=== PATIENT | female | born 1945 | race African-American/Black ===

== ENCOUNTER 2022-07-28 16:33 | Inpatient (IN) | payer MEDICARE ==
[~2022-07-28] VITALS: Ht 162.6 cm; Wt 49.4 kg
--- NOTE | 2022-07-28 17:00 | NUR ---
Pt was triaged and is waiting in the ER hallway in the ambulance [facility]. The ER is saturated and there are no ER beds available.
--- NOTE | 2022-07-28 18:30 | NUR ---
Pt to room 1B via ambulance gurney. BIB private ambulance from [facility] medical surgical floor for admission to MHU. Per report patient has already been medically cleared and needs psych eval for admission to MHU.
--- NOTE | 2022-07-28 19:04 | NUR ---
Endorsed to Nichol ROACH.
--- NOTE | 2022-07-28 19:17 | NUR ---
Called business initiatives manager Jeffy for psych eval. ETA 45 mins
--- NOTE | 2022-07-28 19:36 | NUR ---
patient is able to walk to the restroom with steady gait
--- NOTE | 2022-07-28 19:54 | NUR ---
called MHU for bed. patient assigned to room 141B
[2022-07-28 19:59] LABS: *BILIRUBIN,URIN NEGATIVE (NEGATIVE); *BLOOD, URINE NEGATIVE (NEGATIVE); *CLARITY,URINE CLEAR (CLEAR); *COLOR,URINE YELLOW (YELLOW); *KETONES,URINE NEGATIVE (NEGATIVE); *UROBILINOGEN,URINE 0.2 E.U./dl (NORMAL); LEUKOCYTE ESTERASE ,URINE 1+ (NEGATIVE); NITRITE, URINE NEGATIVE (NEGATIVE); UGLUCOSE NEGATIVE (NEGATIVE)
[2022-07-28 20:01] LABS: BACTERIA,URINE NONE SEEN /HPF (NONE SEEN); RBC,URINE 0-3 /HPF (0-3); SQUAMOUS EPITHELIAL CELL,UR FEW /HPF (NONE SEEN)
[2022-07-28 20:08] LABS: *AMPHETAMINE, URINE NEGATIVE (NEGATIVE); *CANNABINOID, URINE NEGATIVE (NEGATIVE); *COCCAINE, URINE NEGATIVE (NEGATIVE); *OPIATE, URINE NEGATIVE (NEGATIVE); *PHENCYCLIDINE SCREEN,URINE NEGATIVE (NEGATIVE)
--- NOTE | 2022-07-28 20:16 | NUR ---
barrel rifler Jeffy at bedside, psych eval in progress
--- NOTE | 2022-07-28 20:48 | NUR ---
Patient is placed on hold by wedding transportation driver Jeffy 07/28/22 @2030
[2022-07-28 20:50] LABS: HEMATOCRIT 28.3 % (31.2-41.9); MEAN CORPUSCULAR HEMOGLOBIN 30.4 uug (24.7-32.8); MEAN CORPUSCULAR VOLUME 91.2 fL (75.5-95.3); PLATELET COUNT (AUTO) 253 K/uL (179-408)
[2022-07-28 21:08] LABS: CARBON DIOXIDE 28 mmol/L (21-32); CHLORIDE 105 mmol/L (98-107); CREATININE 1.1 mg/dL (0.6-1.3); GLUCOSE 115 mg/dL (74-106); POTASSIUM 4.8 mmol/L (3.5-5.1); UREA NITROGEN, BLOOD 19 mg/dL (7-18)
[2022-07-28 21:13] LABS: ALANINE AMINOTRANSFERASE 73 U/L (14-59); ALKALINE PHOSPHATASE 65 U/L (50-136); ASPARTATE AMINOTRANSFERASE 83 U/L (15-37); BILIRUBIN,DIRECT 0.1 mg/dL (0.0-0.2); BILIRUBIN,TOTAL 0.2 mg/dL (0.2-1.0); TOTAL PROTEIN, SERUM 7.1 g/dL (6.4-8.2)
--- NOTE | 2022-07-28 21:13 | NUR ---
called U to give report, spoke with Gilda ROACH. Was told to call back in 10-15mins
[2022-07-28 21:17] LABS: ACETAMINOPHEN < 2.0 ug/mL (10-30)
[2022-07-28 21:33] LABS: ETHANOL < 3 MG/DL (0-0)
--- NOTE | 2022-07-28 21:36 | NUR ---
called MHU to give report. No answer. will call again in 10 mins
--- NOTE | 2022-07-28 21:54 | NUR ---
Per warehouse manager Gabi ROACH, take the patient in MHU and give report later once RN is ready for report
--- NOTE | 2022-07-28 22:06 | NUR ---
report given to Gilda RN - MHU
--- NOTE | 2022-07-28 22:06 | NUR ---
Patient transfered to MHU by Mason ROACH
--- NOTE | 2022-07-28 22:07 | NUR ---
Pt. admitted to MHU room 141B , under care of Dr. Quintanilla/Gilbert Gong List completed Gilda RN aware of patient's arrival
[2022-07-28 22:17] VITALS: BP 159/58
[2022-07-28] MEDS ORDERED: NITROFURANTOIN/NITROFURAN MAC 100 MG CAPSULE PO ONE (22:30)
[2022-07-28] MEDS ORDERED: CLONAZEPAM 0.5 MG TABLET PO PRN (23:00)
[2022-07-28] MEDS ORDERED: TEMAZEPAM 7.5 MG CAPSULE PO PRN (23:00)
[2022-07-28] MEDS ORDERED: ACETAMINOPHEN 325 MG TABLET PO PRN (23:00)
[2022-07-28] MEDS ORDERED: MAGNESIUM HYDROXIDE 30 ML LIQUID UDC PO PRN (23:00)
[2022-07-28] MEDS ORDERED: MAG HYDROX/AL HYDROX/SIMETH 30 ML LIQUID UDC PO PRN (23:00)
--- NOTE | 2022-07-28 23:45 | NUR ---
ADMISSION NOTE : Patient is a 77 year old female ,brought to the ED by ambulance from [facility] on a 5150 for GD. Per the hold, the patient has been increasingly confused and paranoid. The patient thinks her is " Poisoning her food ". Upon face to face evaluation , the patient is confused and has poor insight as to where she is and why she is here. The patient is delusional and stated that " My uses drugs and he is trying to kill me because I want to divorce him so I can my Doctor ". This telegraphic typewriter repairer was not able to get a clear medical history from the patient because she is forgetful and a poor historian. When being interviewed, the patient was oriented to the environment, took a shower and was provided a Patients Rights Handbook , along with the Patients Advisement . The patient was willing to take an antibiotic for a UTI, but verbalized resistance to taking other types medications. Safety Stratiges are in place at this time.
[2022-07-28] MEDS ORDERED: LOSA100T3 PO (23:50)
[2022-07-28] MEDS ORDERED: MIRT-121 PO (23:50)
[2022-07-28] MEDS ORDERED: DOCU100C36 PO (23:50)
[2022-07-28] MEDS ORDERED: ATOR10TA PO (23:50)
[2022-07-28] MEDS ORDERED: MEMA10TA PO (23:50)
[2022-07-28] MEDS ORDERED: OLAN15TA3 PO (23:50)
[2022-07-28] MEDS ORDERED: ASPI81TA31 PO (23:50)
[2022-07-28] MEDS ORDERED: MECL-159 PO (23:50)
[2022-07-28] MEDS ORDERED: CLON0.1T PO (23:50)
[2022-07-28] MEDS ORDERED: AMLO-212 PO (23:50)
[2022-07-28] MEDS ORDERED: FERR325T28 PO (23:50)
[2022-07-29 07:30] VITALS: BP 134/45
[2022-07-29] MEDS ORDERED: CLONIDINE HCL 0.1 MG TABLET PO PRN (12:15)
[2022-07-29] MEDS ORDERED: MECLIZINE HCL 25 MG TABLET PO PRN (12:15)
[2022-07-29] MEDS ORDERED: LOSA50TA39 PO (12:33)
[2022-07-29 16:00] VITALS: BP 121/45
[2022-07-29] MEDS: MEMANTINE HCL 5 MG TABLET PO SCH (18:09)
[2022-07-29] MEDS: DOCUSATE SODIUM 100 MG CAPSULE PO SCH (18:09)
[2022-07-29 19:52] VITALS: BP 120/59
[2022-07-29] MEDS: OLANZAPINE 2.5 MG TABLET PO SCH (20:54)
[2022-07-29] MEDS: NITROFURANTOIN/NITROFURAN MAC 100 MG CAPSULE PO SCH (20:54)
[2022-07-29] MEDS: ATORVASTATIN 10 MG TABLET PO SCH (20:54)
[2022-07-30 07:30] VITALS: BP 156/57
[2022-07-30] MEDS: MEMANTINE HCL 5 MG TABLET PO SCH ×2 (08:52→16:51)
[2022-07-30] MEDS: NITROFURANTOIN/NITROFURAN MAC 100 MG CAPSULE PO SCH ×2 (08:52→20:54)
[2022-07-30] MEDS: ASPIRIN 81 MG TAB.CHEW PO SCH (08:52)
[2022-07-30] MEDS: DOCUSATE SODIUM 100 MG CAPSULE PO SCH ×2 (08:52→16:51)
[2022-07-30] MEDS: FERROUS SULFATE 325 MG TABEC PO SCH (08:53)
[2022-07-30] MEDS: ENSURE WITH FIBER 237 ML LIQUID (CHOCOLATE) PO SCH ×2 (08:55→16:51)
[2022-07-30] MEDS: AMLODIPINE 5 MG TABLET PO SCH (08:57)
[2022-07-30] MEDS: LOSARTAN POTASSIUM 50 MG TABLET PO SCH (08:57)
[2022-07-30] MEDS ORDERED: LOSARTAN POTASSIUM 50 MG TABLET PO SCH (09:00)
--- NOTE | 2022-07-30 14:28 | NUR ---
LORENZO Initial Discharge Note: Pt currently resides at home under the care of her at [facility] [address] [place] [address] ([phone]). Per pt's , Vinny, pt will discharge back home by his transportation upon discharge. LORENZO will continue to work with pt, family and MD to ensure a safe and proper discharge plan for the pt.
[2022-07-30 16:00] VITALS: BP 133/34
[2022-07-30 20:15] VITALS: BP 118/51
[2022-07-30] MEDS: ATORVASTATIN 10 MG TABLET PO SCH (20:54)
[2022-07-30] MEDS: OLANZAPINE 2.5 MG TABLET PO SCH (20:54)
[2022-07-31 07:30] VITALS: BP 116/46
[2022-07-31] MEDS: LOSARTAN POTASSIUM 50 MG TABLET PO SCH (08:55)
[2022-07-31] MEDS: DOCUSATE SODIUM 100 MG CAPSULE PO SCH ×2 (08:55→16:35)
[2022-07-31] MEDS: MEMANTINE HCL 5 MG TABLET PO SCH ×2 (08:55→16:34)
[2022-07-31] MEDS: AMLODIPINE 5 MG TABLET PO SCH (08:56)
[2022-07-31] MEDS: NITROFURANTOIN/NITROFURAN MAC 100 MG CAPSULE PO SCH ×2 (08:56→21:15)
[2022-07-31] MEDS: FERROUS SULFATE 325 MG TABEC PO SCH (08:56)
[2022-07-31] MEDS: ASPIRIN 81 MG TAB.CHEW PO SCH (08:58)
[2022-07-31] MEDS: ENSURE WITH FIBER 237 ML LIQUID (CHOCOLATE) PO SCH ×2 (08:58→16:35)
--- NOTE | 2022-07-31 10:43 | NUR ---
Firearms Report: Corporate Lawyer completed and submitted a DOJ firearms report for 5150 grave disability certifications. A copy of report has been placed in patient chart.
[2022-07-31 16:00] VITALS: BP 115/53
[2022-07-31] MEDS: OLANZAPINE 2.5 MG TABLET PO SCH (16:34)
--- NOTE | 2022-07-31 17:19 | NUR ---
Received patient is alert and oriented x3,isolative withdrawn lying in bed all shift, compliant with all medication will continue close monitoring.
[2022-07-31] MEDS: ATORVASTATIN 10 MG TABLET PO SCH (21:15)
[2022-07-31 22:33] VITALS: BP 106/45
[2022-08-01 07:39] VITALS: BP 107/53
[2022-08-01] MEDS: LOSARTAN POTASSIUM 50 MG TABLET PO SCH (09:00)
[2022-08-01] MEDS: MEMANTINE HCL 5 MG TABLET PO SCH ×2 (09:00→16:58)
[2022-08-01] MEDS: FERROUS SULFATE 325 MG TABEC PO SCH (09:00)
[2022-08-01] MEDS: DOCUSATE SODIUM 100 MG CAPSULE PO SCH ×2 (09:00→16:58)
[2022-08-01] MEDS: AMLODIPINE 5 MG TABLET PO SCH (09:00)
[2022-08-01] MEDS: NITROFURANTOIN/NITROFURAN MAC 100 MG CAPSULE PO SCH ×2 (09:00→21:41)
[2022-08-01] MEDS: OLANZAPINE 2.5 MG TABLET PO SCH ×2 (09:00→16:58)
[2022-08-01] MEDS: ASPIRIN 81 MG TAB.CHEW PO SCH (09:00)
[2022-08-01] MEDS: ENSURE WITH FIBER 237 ML LIQUID (CHOCOLATE) PO SCH ×2 (09:01→16:58)
--- NOTE | 2022-08-01 15:49 | NUR ---
Patient is received sleeping in her room. Patient is A/O X 2 to person, place. Patient is cooperative with nursing care, compliant with medications, withdrawn, isolative, depressed, quiet. Patient requires minimal assistance with ADL. Patient is encourage to vent feelings and emotions. Fall and safety precautions implemented.
[2022-08-01 16:25] VITALS: BP 114/54
[2022-08-01 21:10] VITALS: BP 92/32
[2022-08-01] MEDS: ATORVASTATIN 10 MG TABLET PO SCH (21:41)
--- NOTE | 2022-08-02 07:22 | NUR ---
Shift Note: RECEIVED PATIENT IN ROOM ASLEEP NO SIGNS OF DISTRESS NOTED. PT WAS AWAKENED FOR MEDICATION NO SIGNS OF ADVERSE REACTION NOTED. PT SLEPT 9 HOURS FOR THE WHOLE SHIFT PT WEIGHT IS 108 PT GAINED 2 POUNDS.PT WAS CALM AND COOPERATIVE. PT MONITORED ORDERED WILL CONTINUE TO MONITOR FOR FALLS AND SAFETY ANY OTHER NEEDS PATIENT MAY HAVE.
[2022-08-02 07:53] VITALS: BP 104/46
[2022-08-02] MEDS: NITROFURANTOIN/NITROFURAN MAC 100 MG CAPSULE PO SCH ×2 (08:47→22:01)
[2022-08-02] MEDS: FERROUS SULFATE 325 MG TABEC PO SCH (08:47)
[2022-08-02] MEDS: DOCUSATE SODIUM 100 MG CAPSULE PO SCH ×2 (08:47→16:32)
[2022-08-02] MEDS: ASPIRIN 81 MG TAB.CHEW PO SCH (08:47)
[2022-08-02] MEDS: OLANZAPINE 2.5 MG TABLET PO SCH ×2 (08:47→16:33)
[2022-08-02] MEDS: MEMANTINE HCL 5 MG TABLET PO SCH ×2 (08:47→16:32)
[2022-08-02] MEDS: AMLODIPINE 5 MG TABLET PO SCH (08:48)
[2022-08-02] MEDS: ENSURE WITH FIBER 237 ML LIQUID (CHOCOLATE) PO SCH ×2 (08:52→17:44)
[2022-08-02] MEDS: LOSARTAN POTASSIUM 50 MG TABLET PO SCH (08:52)
--- NOTE | 2022-08-02 10:00 | NUR ---
Received report from bryan Ny RN. Received pt in bed resting, no signs for distress noted. Pt A&Ox1 to person. Pt's BP is 104/46, Lipitor and amlodipine held. Pt was calm and cooperative, took the rest of AM meds. Pt monitored as ordered, will continue to monitor for falls and safety.
[2022-08-02] MEDS: NUTRISOURCE FIBER 4 GM PACKET PO SCH (13:45)
[2022-08-02 16:21] VITALS: BP 126/44
--- NOTE | 2022-08-02 19:31 | NUR ---
Endorsed pt to night nurseYanely. Pt in bed sleeping, arousable upon entry, no s/s of distress noted.
[2022-08-02 20:00] VITALS: BP 104/58
[2022-08-02 21:14] VITALS: BP 127/50
[2022-08-02] MEDS: ATORVASTATIN 10 MG TABLET PO SCH (22:02)
--- NOTE | 2022-08-03 02:53 | NUR ---
SHIFT NOTE': RECEIVED REPORT FROM AM NURSE PATIENT IS STILL ISOLATIVE AND DEPRESSIVE ON A 14 DAY HOLD UNTIL0-08/13/21. PT REASSESSED PT IS SLEEPING STAYS IN ROOM PT AWAKENED TO GIVE MEDICATION SHE CRACKED A JOKE AND WE BOTH SMILED. NO SIGNS OF RESPIRATORY DISTRESS NOTED. PT HAD NO ADVERSE SIDE EFFECTS FROM HS MEDICATION WILL CONTINUE TO MONITOR ORDERED FOR SAFETY AND FALLS ALONG WITH ENDORSING TO AM NURSE.
[2022-08-03 07:53] VITALS: BP 123/46
[2022-08-03] MEDS: NITROFURANTOIN/NITROFURAN MAC 100 MG CAPSULE PO SCH (08:50)
[2022-08-03] MEDS: MEMANTINE HCL 5 MG TABLET PO SCH ×2 (08:50→16:13)
[2022-08-03] MEDS: AMLODIPINE 5 MG TABLET PO SCH (08:50)
[2022-08-03] MEDS: FERROUS SULFATE 325 MG TABEC PO SCH (08:50)
[2022-08-03] MEDS: LOSARTAN POTASSIUM 50 MG TABLET PO SCH (08:50)
[2022-08-03] MEDS: OLANZAPINE 2.5 MG TABLET PO SCH ×2 (08:50→21:09)
[2022-08-03] MEDS: DOCUSATE SODIUM 100 MG CAPSULE PO SCH ×2 (08:50→16:13)
[2022-08-03] MEDS: ASPIRIN 81 MG TAB.CHEW PO SCH (08:50)
[2022-08-03] MEDS: ENSURE WITH FIBER 237 ML LIQUID (CHOCOLATE) PO SCH ×2 (09:21→16:13)
[2022-08-03] MEDS: NUTRISOURCE FIBER 4 GM PACKET PO SCH (09:21)
--- NOTE | 2022-08-03 14:42 | NUR ---
GPS: Nursing Notes: Thought Disorder: Patient is awake and responding to her name, resistant with nursing care, isolative and withdrawn in her room, refusing to come out her room, paranoid behavior, believes that her is trying to poison her her, stated "Yes, he is trying to drug me... I am going to my doctor... I will divorce my ..", encourage to come out of her room to see the Rema Seymour at the activity room, but refused to come out of her room, unable to formulate a viable plan for self care, unkempt appearance, continue to monitor for safety, continue with treatment plan.
[2022-08-03 15:52] VITALS: BP 123/54
[2022-08-03 21:06] VITALS: BP 118/38
[2022-08-03] MEDS: ATORVASTATIN 10 MG TABLET PO SCH (21:09)
[2022-08-04 08:10] VITALS: BP 87/48
[2022-08-04] MEDS: DOCUSATE SODIUM 100 MG CAPSULE PO SCH ×2 (08:45→18:15)
[2022-08-04] MEDS: ASPIRIN 81 MG TAB.CHEW PO SCH (08:45)
[2022-08-04] MEDS: FERROUS SULFATE 325 MG TABEC PO SCH (08:45)
[2022-08-04] MEDS: MEMANTINE HCL 5 MG TABLET PO SCH ×2 (08:45→18:15)
[2022-08-04] MEDS: ENSURE WITH FIBER 237 ML LIQUID (CHOCOLATE) PO SCH ×2 (08:46→18:15)
[2022-08-04] MEDS: NUTRISOURCE FIBER 4 GM PACKET PO SCH (08:46)
[2022-08-04] MEDS: AMLODIPINE 5 MG TABLET PO SCH (09:00)
[2022-08-04] MEDS: LOSARTAN POTASSIUM 50 MG TABLET PO SCH (09:00)
[2022-08-04 09:30] VITALS: BP 110/54
--- NOTE | 2022-08-04 13:55 | NUR ---
GPS: Nursing Notes: Thought Disorder: Patient is awake and responding to her name, compliant with her medications, refusing to come out of her room to participate in therapeutic groups, recreational therapist doing a 1:1 therapy with her, believes that her is trying to poison her, stated "I am going to my doctor and divorce him..", redirected during shift, poor insight, impaired judgment, unable to formulate a viable plan for self care, continue to monitor for safety, continue with treatment plan.
--- NOTE | 2022-08-04 15:18 | NUR ---
LORENZO PC Hearing: Patient had 5250 probable cause hearing today and it was upheld for grave disability.
[2022-08-04 15:30] VITALS: BP 136/50
--- NOTE | 2022-08-04 15:48 | NUR ---
LORENZO Family Contact: LORENZO contacted pt's , Vinny ([phone]) and discussed pt's discharge plan to return home. Vinny stated if pt discharges between this 08/06 to next wednesday, Frandy sister, adrianne ([phone]) will provide transportation to patients return home. Vinny state he will be at a conference. However, Vinny will still be available to be informed of pt's discharge update.
[2022-08-04 20:04] VITALS: BP 146/54
[2022-08-04] MEDS: OLANZAPINE 2.5 MG TABLET PO SCH (21:00)
[2022-08-04] MEDS: ATORVASTATIN 10 MG TABLET PO SCH (21:00)
[2022-08-05 07:30] VITALS: BP 107/57
--- NOTE | 2022-08-05 07:36 | NUR ---
GPS: SHIFT NOTE: PT COMPLIANT WITH MEDICATION AND NO INTERACTION WITH PEERS PT IS ISOLATIVE IN HER ROOM.PT HAS A SISTER NAME JOHN WHO WILL COME AND SEE PT TO GET KEYS. PT IS COMPLIANT WITH MEDICATION AND NO ADVERSE REACTION FROM MEDICATION. WILL CONTINUE TO MONITOR FOR SAFETY. AND FALLS
[2022-08-05] MEDS: LOSARTAN POTASSIUM 50 MG TABLET PO SCH (09:00)
[2022-08-05] MEDS: AMLODIPINE 5 MG TABLET PO SCH (09:00)
[2022-08-05] MEDS: MEMANTINE HCL 5 MG TABLET PO SCH ×2 (09:27→17:55)
[2022-08-05] MEDS: DOCUSATE SODIUM 100 MG CAPSULE PO SCH ×2 (09:27→17:55)
[2022-08-05] MEDS: FERROUS SULFATE 325 MG TABEC PO SCH (09:27)
[2022-08-05] MEDS: ASPIRIN 81 MG TAB.CHEW PO SCH (09:27)
[2022-08-05] MEDS: ENSURE WITH FIBER 237 ML LIQUID (CHOCOLATE) PO SCH ×2 (09:28→17:55)
[2022-08-05] MEDS: NUTRISOURCE FIBER 4 GM PACKET PO SCH (09:28)
--- NOTE | 2022-08-05 15:03 | NUR ---
PT IS LESS ISOLATIVE INTERACTS WITH ROOMMATE AND THERAPISTS WAS PLAYED GAMES IN THE DINING AREA AND HAD A VISIT FROM FAMILY MEMBER. AND PT IS TALKING TO STAFFF BUT HAIR IS STILL DISHEVELED. WILL ENDORSE TO HS NURSE.
[2022-08-05 16:00] VITALS: BP 121/45
[2022-08-05 20:15] VITALS: BP 116/51
--- NOTE | 2022-08-05 20:30 | NUR ---
RECEIVED PATIENT IN HER ROOM IN BED. SHE IS NOTED AWAKE A/O X 2 TO 3. HER MOOD IS LOW AFFECT IS FLAT. SHE IS ABLE TO VERBALIZED HER FEELINGS. SHE IS ABLE TO HAVE A CONVERSATION WITH THIS PROGRAM MANUFACTURING LEADER AND IS MEANINGFUL. SHE STATE, "YES, MY CAME TO VISIT ME TODAY. WE ARE FINE". PATIENT IS SOMEWHAT BETTER. SHE IS REASSURED FOR HER SAFETY. SAFETY AND FALL PRECAUTIONS ARE IN PLACE. HER V/S ARE STABLE. SHE WAS GIVEN PO FLUIDS AND SNACKS. ALL HER NEEDS ARE MET. WILL CONTINUE TO MONITOR.
[2022-08-05] MEDS: OLANZAPINE 2.5 MG TABLET PO SCH (21:15)
[2022-08-05] MEDS: ATORVASTATIN 10 MG TABLET PO SCH (21:16)
[2022-08-06 07:30] VITALS: BP 110/51
[2022-08-06] MEDS: ENSURE WITH FIBER 237 ML LIQUID (CHOCOLATE) PO SCH ×2 (09:07→17:14)
[2022-08-06] MEDS: AMLODIPINE 5 MG TABLET PO SCH (09:41)
[2022-08-06] MEDS: ASPIRIN 81 MG TAB.CHEW PO SCH (09:41)
[2022-08-06] MEDS: DOCUSATE SODIUM 100 MG CAPSULE PO SCH ×2 (09:41→16:58)
[2022-08-06] MEDS: MEMANTINE HCL 5 MG TABLET PO SCH ×2 (09:42→16:58)
[2022-08-06] MEDS: LOSARTAN POTASSIUM 50 MG TABLET PO SCH (09:42)
[2022-08-06] MEDS: FERROUS SULFATE 325 MG TABEC PO SCH (09:42)
[2022-08-06] MEDS: NUTRISOURCE FIBER 4 GM PACKET PO SCH (09:46)
--- NOTE | 2022-08-06 12:32 | NUR ---
LORENZO Family Contact: LORENZO spoke with pt's daughter, Denise ([phone]) in person during visitation. Denise asked to be informed in addition to her father and aunt for pt's discharge date. Denise stated pt will follow-up at home with additional care providers to help her father take care of the pt.
[2022-08-06 16:00] VITALS: BP 125/49
--- NOTE | 2022-08-06 18:45 | NUR ---
0730-REC'D PATIENT IN BED, AWAKE, ALERT, ABLE TO COMMUNICATE HER NEEDS, FOLLOWS SIMPLE DIRECTIONS. DENIES ANY PAIN AT THIS TIME. ORAL FLUIDS TAKEN WELL. PATIENT AMBULATES AD ABDULLAHI IN HALLWAY UNIT, GOES BACK TO HER ROOM TO REST/SLEEP ON AND OFF. SELF CARE, CONTINENT AND W/ BRP, SUPERVISION PROVIDED AT ALL TIMES. ASSIST NEEDED. ENCOURAGED AND OFFERED ASSIST FREQUENTLY. WILL MONITOR CLOSELY. 0900-SCHEDULED/DUE MEDICATION ADMINISTERED WITH NO ASE NOTED, ORAL FLUIDS TAKEN WELL. PATIENT ATE HER BREAKFAST, DENIES GI DISCOMFORT. 1500-PATIENT OOB, PARTICIPATING IN PLANNED ACTIVITIES WITH OTHER PATIENTS IN THE UNIT, SOCIALIZES WITH NURSING STAFF, WHEREABOUTS MONITOR FOR SAFETY. ASSIST NEEDED DURING SHIFT. PATIENT COOPERATIVE WITH HER CARE AND TREATMENT. NEEDS ANTICIPATED AND MET, NO UNUSUAL EVENTS DURING SHIFT. ENDORSED TO INCOMING NOC RELIEVING NURSE.
[2022-08-06 20:20] VITALS: BP 100/51
[2022-08-06] MEDS: ATORVASTATIN 10 MG TABLET PO SCH (21:18)
[2022-08-06] MEDS: OLANZAPINE 2.5 MG TABLET PO SCH (21:23)
--- NOTE | 2022-08-07 06:44 | NUR ---
GPS: SHIFT nOTE: RECEIVED PT IN ROOM SITTING UP IN BED READING A BOOK. PT ABLE TO EXPRESS HER NEEDS INDEPENDENT WITH CARE BUT ASSIST PRN. PT DENIES PAIN AND MEDICATION GIVEN ORDERED WITH NO ADVERSE REACTION. PT IS LESS ISOLATIVE SOMETIMES INTERMINGLE WITH PEERS ALONG WITH STAFF. PT IS MONITORED CLOSELY.
[2022-08-07 07:30] VITALS: BP 91/48
[2022-08-07] MEDS: DOCUSATE SODIUM 100 MG CAPSULE PO SCH ×2 (08:59→17:26)
[2022-08-07] MEDS: ASPIRIN 81 MG TAB.CHEW PO SCH (08:59)
[2022-08-07] MEDS: LOSARTAN POTASSIUM 50 MG TABLET PO SCH (09:00)
[2022-08-07] MEDS: AMLODIPINE 5 MG TABLET PO SCH (09:00)
[2022-08-07] MEDS: FERROUS SULFATE 325 MG TABEC PO SCH (09:01)
[2022-08-07] MEDS: ENSURE WITH FIBER 237 ML LIQUID (CHOCOLATE) PO SCH ×2 (09:01→17:27)
[2022-08-07] MEDS: MEMANTINE HCL 5 MG TABLET PO SCH ×2 (09:02→17:26)
[2022-08-07] MEDS: NUTRISOURCE FIBER 4 GM PACKET PO SCH (09:03)
--- NOTE | 2022-08-07 14:32 | NUR ---
Received patient sleeping in her room. Patient is isolative, depressed, withdrawn, forgetful, confused at times, cooperative with nursing care, and compliant with medications. Emotional support provided. Fall and safety precautions implemented.
[2022-08-07 16:56] VITALS: BP 124/46
[2022-08-07 20:45] VITALS: BP 105/45
[2022-08-07] MEDS: ATORVASTATIN 10 MG TABLET PO SCH (21:15)
[2022-08-07] MEDS: OLANZAPINE 2.5 MG TABLET PO SCH (21:15)
[2022-08-08 08:05] VITALS: BP 117/52
[2022-08-08] MEDS: ASPIRIN 81 MG TAB.CHEW PO SCH (08:25)
[2022-08-08] MEDS: DOCUSATE SODIUM 100 MG CAPSULE PO SCH ×2 (08:26→17:21)
[2022-08-08] MEDS: FERROUS SULFATE 325 MG TABEC PO SCH (08:26)
[2022-08-08] MEDS: LOSARTAN POTASSIUM 50 MG TABLET PO SCH (08:26)
[2022-08-08] MEDS: MEMANTINE HCL 5 MG TABLET PO SCH ×2 (08:26→17:21)
[2022-08-08] MEDS: AMLODIPINE 5 MG TABLET PO SCH (08:27)
[2022-08-08] MEDS: ENSURE WITH FIBER 237 ML LIQUID (CHOCOLATE) PO SCH ×2 (08:27→17:22)
[2022-08-08] MEDS: NUTRISOURCE FIBER 4 GM PACKET PO SCH (08:28)
[2022-08-08 16:15] VITALS: BP 108/44
[2022-08-08 19:54] VITALS: BP 117/44
[2022-08-08] MEDS: OLANZAPINE 2.5 MG TABLET PO SCH (21:05)
[2022-08-08] MEDS: ATORVASTATIN 10 MG TABLET PO SCH (21:05)
--- NOTE | 2022-08-09 03:49 | NUR ---
Patient has been angry, non compliant, complaining about her roommate and paranoid tonight. The patient shows reluctance when taking routine medications and refuses PRN meds. The patient has had 0.00 sleep so far this shift. The only time patient would come out of the room , was to take a shower. Safety Stratiges are in place and continuing to monitor the patients behavior and paranoia.
[2022-08-09 08:05] VITALS: BP 120/46
[2022-08-09] MEDS: ASPIRIN 81 MG TAB.CHEW PO SCH (08:34)
[2022-08-09] MEDS: MEMANTINE HCL 5 MG TABLET PO SCH ×2 (08:34→16:45)
[2022-08-09] MEDS: FERROUS SULFATE 325 MG TABEC PO SCH (08:35)
[2022-08-09] MEDS: LOSARTAN POTASSIUM 50 MG TABLET PO SCH (08:35)
[2022-08-09] MEDS: AMLODIPINE 5 MG TABLET PO SCH (08:35)
[2022-08-09] MEDS: ENSURE WITH FIBER 237 ML LIQUID (CHOCOLATE) PO SCH ×2 (08:36→16:45)
[2022-08-09] MEDS: DOCUSATE SODIUM 100 MG CAPSULE PO SCH ×2 (08:36→16:45)
[2022-08-09] MEDS: NUTRISOURCE FIBER 4 GM PACKET PO SCH (08:37)
--- NOTE | 2022-08-09 15:41 | NUR ---
Received Patient is awake and responding to her name, resistant with nursing care, isolative and withdrawn in her room, refusing to come out her room, paranoid behavior, believes that her is trying to poison her her, encourage to come out of her room to attend in group activity at the activity room, but refused to come out of her room, unable to formulate a viable plan for self care, unkempt appearance.
[2022-08-09 20:00] VITALS: BP 103/45
[2022-08-09] MEDS: OLANZAPINE 2.5 MG TABLET PO SCH (20:18)
[2022-08-09] MEDS: ATORVASTATIN 10 MG TABLET PO SCH (20:18)
[2022-08-10 08:16] VITALS: BP 120/53
[2022-08-10] MEDS: MEMANTINE HCL 5 MG TABLET PO SCH ×2 (08:46→18:06)
[2022-08-10] MEDS: ASPIRIN 81 MG TAB.CHEW PO SCH (08:46)
[2022-08-10] MEDS: LOSARTAN POTASSIUM 50 MG TABLET PO SCH (08:47)
[2022-08-10] MEDS: AMLODIPINE 5 MG TABLET PO SCH (08:47)
[2022-08-10] MEDS: DOCUSATE SODIUM 100 MG CAPSULE PO SCH ×2 (08:48→17:00)
[2022-08-10] MEDS: ENSURE WITH FIBER 237 ML LIQUID (CHOCOLATE) PO SCH ×2 (08:48→18:05)
[2022-08-10] MEDS: FERROUS SULFATE 325 MG TABEC PO SCH (08:49)
[2022-08-10] MEDS: NUTRISOURCE FIBER 4 GM PACKET PO SCH (08:50)
--- NOTE | 2022-08-10 09:59 | NUR ---
LORENZO Family Contact: LORENZO contacted pt's , Vinny ([phone]) and discussed pt's discharge plan to return home on Wednesday. Vinny confirmed he will provide transportation at 11am. Vinny stated pt has a psychiatrist follow-up scheduled on August 14 and he will provide this SW with details prior to discharge on Wednesday.
[2022-08-10 15:59] VITALS: BP 107/43
[2022-08-10 19:48] VITALS: BP 116/50
[2022-08-10] MEDS: OLANZAPINE 2.5 MG TABLET PO SCH (20:39)
[2022-08-10] MEDS: ATORVASTATIN 10 MG TABLET PO SCH (20:39)
[2022-08-11 08:18] VITALS: BP 115/53
[2022-08-11] MEDS: ASPIRIN 81 MG TAB.CHEW PO SCH (08:31)
[2022-08-11] MEDS: MEMANTINE HCL 5 MG TABLET PO SCH ×2 (08:31→16:31)
[2022-08-11] MEDS: FERROUS SULFATE 325 MG TABEC PO SCH (08:31)
[2022-08-11] MEDS: DOCUSATE SODIUM 100 MG CAPSULE PO SCH ×2 (08:31→16:32)
[2022-08-11] MEDS: ENSURE WITH FIBER 237 ML LIQUID (CHOCOLATE) PO SCH ×2 (08:32→16:33)
[2022-08-11] MEDS: LOSARTAN POTASSIUM 50 MG TABLET PO SCH (08:32)
[2022-08-11] MEDS: AMLODIPINE 5 MG TABLET PO SCH (08:33)
[2022-08-11] MEDS: NUTRISOURCE FIBER 4 GM PACKET PO SCH (08:33)
--- NOTE | 2022-08-11 15:22 | NUR ---
Received patient sleeping in her room. A/O X 3 to person, place. Patient is isolative, engage in one a one activities such as coloring or panting, calm, depressed, cooperative, compliant with medications. Patient ambulates without assistance. Requires minimal assistance with ADL. Patient is encourage to verbalize concerns. Fall and safety precautions implemented.
[2022-08-11 16:05] VITALS: BP 109/49
[2022-08-11 20:24] VITALS: BP 117/51
[2022-08-11] MEDS: ATORVASTATIN 10 MG TABLET PO SCH (20:46)
[2022-08-11] MEDS ORDERED: OLANZAPINE 5 MG TABLET PO SCH (21:00)
[2022-08-12 07:30] VITALS: BP 125/62
[2022-08-12] MEDS: ENSURE WITH FIBER 237 ML LIQUID (CHOCOLATE) PO SCH (09:00)
--- NOTE | 2022-08-12 09:35 | NUR ---
LORENZO Discharge Note: Pt will be discharged Home located at [address] [place] [address] via pts , Frandy ([phone]) private vehicle transportation at 11am. LORENZO spoke with Vinny, pts daughter, Jen and pts sister, Shira who state they are ready to accept the patient today. Pt is aware and agreeable with discharge plan. Pt is alert and oriented x2, is unable to plan for self-care at this time. However, pt is willing to accept care by her family at home and tool checker per family. Pt denies any suicidal or homicidal ideation. Pt will follow-up at the facility with her outpt Psychiatrist, Dr. Lubin ([phone]) and Senior Lead Project Manager. Pt will follow-up with Dr. Cooney located at [address] [place] [address]. Pt presents with calm mood and congruent affect. PHARMACY: [facility] [address] [place] [address] ([phone]).
[2022-08-12] MEDS: DOCUSATE SODIUM 100 MG CAPSULE PO SCH (10:09)
[2022-08-12] MEDS: MEMANTINE HCL 5 MG TABLET PO SCH (10:09)
[2022-08-12] MEDS: ASPIRIN 81 MG TAB.CHEW PO SCH (10:09)
[2022-08-12] MEDS: AMLODIPINE 5 MG TABLET PO SCH (10:09)
[2022-08-12] MEDS: NUTRISOURCE FIBER 4 GM PACKET PO SCH (10:10)
[2022-08-12 10:15] VITALS: BP 125/62
[2022-08-12] MEDS: FERROUS SULFATE 325 MG TABEC PO SCH (10:15)
[2022-08-12] MEDS: LOSARTAN POTASSIUM 50 MG TABLET PO SCH (10:15)
--- NOTE | 2022-08-12 12:09 | NUR ---
Patient is being discharged home and being picked up by her , Vinny. Pt is aware and agrees to go. VS are stable, no distress. Discharge instructions are given including medications. patient and patient's verbalize understanding.
== END 2022-08-12 14:00 | disposition home or self-care (01) | DRG 885 ==
LOC: ER 16:33 → GPS 20:00
PROVIDERS: ADMIT Psychiatry & Neurology Psychiatry; ATTEND Nurse Practitioner Acute Care
DX: F29 Unspecified psychosis not due to a substance or known physiological condition (principal); N39.0 Urinary tract infection, site not specified; Z68.1 Body mass index [BMI] 19.9 or less, adult; F03.918 Unspecified dementia, unspecified severity, with other behavioral disturbance; E44.1 Mild protein-calorie malnutrition; E78.5 Hyperlipidemia, unspecified; R62.7 Adult failure to thrive; I10 Essential (primary) hypertension; Z20.822 Contact with and (suspected) exposure to COVID-19; F22 Delusional disorders; R41.9 Unspecified symptoms and signs involving cognitive functions and awareness; Z73.6 Limitation of activities due to disability; R74.01 Elevation of levels of liver transaminase levels; V89.2XXS Person injured in unspecified motor-vehicle accident, traffic, sequela
CPT/HCPCS: 36415; 85025; A4663; G0480